=== PATIENT | male | born 1950 ===

== ENCOUNTER → 2020-07-29 13:06 | Outpatient (CLI) | payer OTHER | END | disposition home or self-care (01) | LOC: LAB 13:06 | PROVIDERS: ATTEND Urology | DX: R97.20 Elevated prostate specific antigen [PSA] (principal) ==

== ENCOUNTER 2020-09-12 07:28 | Outpatient (CLI) | payer OTHER | END 2020-09-12 07:30 | disposition home or self-care (01) | LOC: SONOGRAMA 07:28 | PROVIDERS: ATTEND Urology | DX: C61 Malignant neoplasm of prostate (principal); D29.1 Benign neoplasm of prostate; R97.20 Elevated prostate specific antigen [PSA] ==

== ENCOUNTER 2020-09-26 07:11 | Outpatient (CLI) | payer OTHER | END 2020-09-26 07:25 | disposition home or self-care (01) | LOC: TOM 07:11 | PROVIDERS: ATTEND Urology | DX: Q61.02 Congenital multiple renal cysts (principal); R97.20 Elevated prostate specific antigen [PSA] ==

== ENCOUNTER 2020-10-16 07:12 | Outpatient (CLI) | payer OTHER | END 2020-10-16 07:13 | disposition home or self-care (01) | LOC: NUCLEAR 07:12 | PROVIDERS: ATTEND Urology | DX: R97.20 Elevated prostate specific antigen [PSA] (principal) | CPT/HCPCS: 78803; A9503 ==